=== PATIENT | female | born 1990 | race Caucasian/White ===

== ENCOUNTER 2024-10-24 07:06 | Emergency (ER) | payer BC, SELFPAY ==
--- NOTE | ~2024-10-24 | XR_ITS ---
EXAMINATION: XR knee LT min 4V DATE: 10/24/2024 07:36 INDICATION: Left knee pain post fall TECHNIQUE: Anteroposterior, 2 oblique and crosstable lateral views of the left knee were obtained COMPARISON: None. FINDINGS: Alignment is normal. No fracture. Joint spaces appear normal on nonweightbearing imaging. Small left knee joint effusion. Soft tissues are unremarkable. IMPRESSION: 1. Small left knee joint effusion. No osseous abnormality. Reviewed, dictated and finalized at location A. SPORTATION MANAGER
[2024-10-24 07:13] VITALS: BP 124/82; PULSE 100; RESP 16; TEMP 36.6; O2SAT 100
[2024-10-24] MEDS: HYDROcodone/acetaminophen (*CRX) 5-325 MG TABLET 1 TAB PO (08:36)
--- NOTE | 2024-10-24 08:44 | ED.LOWEXIN ---
HPI - Extremity Injury (Lower) General Chief Complaint: Extremity Injury, Lower Stated Complaint: L knee pain after fall Time Seen by Provider: 10/24/24 07:11 History of Present Illness HPI Narrative: Patient is a 33-year-old female who presents ER with left knee pain. 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 She had sudden onset pain in her left knee in the posterior aspect. She had difficulty bearing weight and pain increase the point where she had to leave the wedding orally. No numbness or tingling. She has some bruising over the lewis inferior to the knee but the majority of pain is posterior. She did not strike her head or lose consciousness. No other injury. Related Data Allergies Allergy/AdvReac Type Severity Reaction Status Date / Time latex Allergy Unknown Verified 10/24/24 07:08 Review of Systems Constitutional: Constitutional: Reports no additional constitutional complaints Musculoskeletal: Musculoskeletal: Denies back pain, Reports arthralgias, Reports joint swelling and Denies muscle cramps Integumentary/Breasts: Skin/Breast: Reports system reviewed and no additional complaints, except as docu PMFSH Past Medical History Medical History (Updated 10/24/24 @ 08:57 by Jj Monteiro MD) Healthy female adult Surgical History Surgical History (Updated 10/24/24 @ 08:57 by Jj Monteiro MD) H/O tubal ligation Exam Narrative: GENERAL: Well-appearing, well-nourished, and in no acute distress. HEAD: Normocephalic, atraumatic. ENT: Mucous membranes moist. EXTREMITIES: left lower extremity exam with bruising inferior to the knee. No heel drop. small left knee effusion. Guarded range of motion. No anterior joint line tenderness. Hamstrings intact. Positive anterior drawer sign on left. SKIN: Warm, dry, no rash. NEURO: Alert and oriented x3. PSYCH: Normal mood and affect. Course Course Emergency Course: Patient resting comfortably after application knee immobilizer. Crutches training provided. Discussed with ortho on-call. Recommends calling tomorrow at 8:30 a.m. to schedule an appointment. I have concern for ACL injury. Vital Signs Vital signs: Vital Signs Temperature 97.8 F 10/24/24 07:13 Pulse Rate 100 10/24/24 07:13 Respiratory Rate 16 10/24/24 07:13 Blood Pressure 124/82 10/24/24 07:13 Pulse Oximetry 100 10/24/24 07:13 Temperature 97.8 F 10/24/24 07:13 Pulse Rate 100 10/24/24 07:13 Respiratory Rate 16 10/24/24 07:13 Blood Pressure 124/82 10/24/24 07:13 Pulse Oximetry 100 10/24/24 07:13 MDM - Extremity Injury (Lower) Imaging Data Radiologist's impression: ITS Impressions Knee X-Ray 10/24/24 07:36 IMPRESSION: 1. Small left knee joint effusion. No osseous abnormality. Discharge Plan Discharge Clinical Impression: Acute internal derangement of knee Patient Disposition: Home, Self-Care Condition: Stable Instructions: ACL Injury (ED) Additional Instructions: There is concern that you may have injured her ACL from her fall. Your placed in a knee immobilizer and given crutches. Take Tylenol with hydrocodone as needed for pain. Elevate the affected extremity. Follow up with Orthopedic surgery. Prescriptions: New hydrocodone-acetaminophen 5-325 mg tablet 1 tablet PO Q6H PRN (Reason: pain) Qty: 20 0RF Follow-up/Referrals: Dossett,Wilberto Cowart MD [Primary Care Provider] - Alberto Whipple MD [Physician] - 1 Day Stand Alone Forms: Work/School Release IP
== END 2024-10-24 09:06 | disposition home or self-care (01) ==
PROVIDERS: Emergency Provider Emergency Medicine; PCP Family Medicine
DX: M23.92 Unspecified internal derangement of left knee (principal); S89.92XA Unspecified injury of left lower leg, initial encounter; W01.0XXA Fall on same level from slipping, tripping and stumbling without subsequent striking against object, initial encounter
CPT/HCPCS: 73564; 99283; A9270